=== PATIENT | female | born 2000 | race Two or more races ===

== ENCOUNTER 2022-07-10 10:33 | Emergency (ER) | payer SELFPAY ==
[2022-07-10 10:49] VITALS: BP 106/55; PULSE 88; RESP 16; TEMP 97.8; BMI 25.6
== END 2022-07-10 11:43 | disposition home or self-care (01) ==
LOC: JERFT 10:33
DX: R07.0 Pain in throat (principal); R50.9 Fever, unspecified; R05.9 Cough, unspecified; R49.0 Dysphonia; J02.0 Streptococcal pharyngitis
CPT/HCPCS: 99283-25

== ENCOUNTER 2022-12-30 09:16 | Emergency (ER) | payer OTHER ==
[2022-12-30 09:37] VITALS: BMI 27.4
[2022-12-30] MEDS ORDERED: diphenhydrAMINE HCL 25 MG CAPSULE (FP) PO ONE ×2 (10:04→10:13)
[2022-12-30] MEDS ORDERED: DEXAMETHASONE SOD PHOSPHATE 10 MG/1 ML VIAL IM ONE (10:06)
[2022-12-30] MEDS ORDERED: FAMOTIDINE 20 MG TABLET PO ONE (10:06)
[2022-12-30] MEDS ORDERED: DEXAMETHASONE SOD PHOSPHATE 10 MG/1 ML VIAL ONE (10:13)
[2022-12-30] MEDS ORDERED: FAMOTIDINE 20 MG TABLET ONE (10:13)
[2022-12-30 10:57] VITALS: BP 112/64; PULSE 87; RESP 17; TEMP 98.2
== END 2022-12-30 11:18 | disposition home or self-care (01) ==
LOC: JERFT 09:16
PROC: 3E023GC Introduction of Other Therapeutic Substance into Muscle, Percutaneous Approach (ICD-10-PCS; principal; 2022-12-30)
DX: R21 Rash and other nonspecific skin eruption (principal); L29.9 Pruritus, unspecified; M79.10 Myalgia, unspecified site; T78.40XA Allergy, unspecified, initial encounter
CPT/HCPCS: 99284-25; J1100

== ENCOUNTER 2023-03-25 14:31 | Emergency (ER) | payer SELFPAY ==
[2023-03-25 14:42] VITALS: BP 100/65; PULSE 85; RESP 18; TEMP 98; BMI 26.2
== END 2023-03-25 17:02 | disposition home or self-care (01) ==
LOC: JERFT 14:31
DX: J02.9 Acute pharyngitis, unspecified (principal); R50.9 Fever, unspecified; R05.9 Cough, unspecified; U07.1 COVID-19
CPT/HCPCS: 0241U-QW; 87651; 99283-25

== ENCOUNTER 2023-07-07 12:49 | Emergency (ER) | payer OTHER ==
[2023-07-07 13:00] VITALS: BP 101/62; PULSE 72; RESP 16; TEMP 98.8; BMI 22.6
== END 2023-07-07 14:14 | disposition home or self-care (01) ==
LOC: JERFT 12:49
DX: R09.81 Nasal congestion (principal); R53.1 Weakness; B34.9 Viral infection, unspecified
CPT/HCPCS: 99282-25

== ENCOUNTER 2023-09-09 23:00 | Emergency (ER) | payer OTHER ==
[~2023-09-09 23:00] MED LIST: LIDOCAINE PATCH REMOVAL MC SCH
[2023-09-09 23:04] VITALS: BP 113/82; PULSE 83; RESP 20; TEMP 98.1; BMI 22.4
[2023-09-09] MEDS ORDERED: METHOCARBAMOL 500 MG TABLET ONE (23:28)
[2023-09-09] MEDS ORDERED: ACETAMINOPHEN 325 MG TABLET (FP) ONE (23:28)
[2023-09-09] MEDS ORDERED: LIDOCAINE 4% PATCH TP ONE (23:29)
[2023-09-09] MEDS: ACETAMINOPHEN 500 MG TABLET (FP) PO ONE (23:33)
[2023-09-09] MEDS: LIDOCAINE 4% PATCH TP ONE (23:33)
[2023-09-09] MEDS: METHOCARBAMOL 750 MG TAB PO ONE (23:34)
[2023-09-09] MEDS ORDERED: KETOROLAC TROMETHAMINE 30 MG/1 ML VIAL ONE (23:41)
[2023-09-09] MEDS: KETOROLAC TROMETHAMINE 30 MG/1 ML VIAL IM ONE (23:44)
== END 2023-09-10 01:24 | disposition home or self-care (01) ==
LOC: JER 23:00
PROC: 3E0233Z Introduction of Anti-inflammatory into Muscle, Percutaneous Approach (ICD-10-PCS; principal; 2023-09-09)
DX: M54.2 Cervicalgia (principal)
CPT/HCPCS: 99284-25

== ENCOUNTER 2023-12-09 13:48 | Emergency (ER) | payer OTHER ==
[2023-12-09 14:00] VITALS: BP 112/78; PULSE 86; RESP 20; TEMP 97.8; BMI 28.1
[2023-12-09] MEDS ORDERED: NAPROXEN 500 MG TABLET ONE (14:35)
[2023-12-09] MEDS: NAPROXEN 500 MG TABLET PO ONE (14:37)
== END 2023-12-09 14:38 | disposition home or self-care (01) ==
LOC: JERFT 13:48
DX: G44.309 Post-traumatic headache, unspecified, not intractable (principal)
CPT/HCPCS: 99283-25